=== PATIENT | female | born 1990 | race Two or more races ===

== ENCOUNTER → 2017-10-11 | Outpatient (CLI) | payer OTHER ==
[2017-10-11 19:43] LABS: FREE T4 1.03 NG/DL (0.76-1.46)
[2017-10-11 19:45] LABS: TOTAL 25(OH) VITAMIN D 23.9 NG/ML (30.0-100.0)
== END ==
LOC: M SMT 13:42
DX: F39 Unspecified mood [affective] disorder (principal)
CPT/HCPCS: 84443

== ENCOUNTER → 2018-02-19 | Outpatient (CLI) | payer OTHER, MEDICAID | LOC: M RAD 14:59 | DX: N94.12 Deep dyspareunia (principal); N83.202 Unspecified ovarian cyst, left side; N83.201 Unspecified ovarian cyst, right side | CPT/HCPCS: 76856 ==

== ENCOUNTER → 2018-05-20 | Outpatient (CLI) | payer OTHER ==
--- NOTE | 2018-05-20 17:00 | REP ---
LEFT BREAST ULTRASOUND: Real-time sonographic evaluation of the left breast performed to evaluate a palpable lump at 2-o'clock region. This has reportedly been present since 05/15/2018. Patient has also experienced left breast tenderness for about one month. There is a family history of internal grandmother and paternal aunts with breast cancer. There is dense fibroglandular tissue in the region of 2-o'clock, at the reported palpable abnormality. A cyst or ectatic duct is seen near the nipple, 5 x 2 x 4 mm. There is a hypoechoic nodule near the nipple, 1.1 x 0.6 x 1.2 cm. There is increased through transmission. Echotexture is fairly homogeneous. This probably represents a fibroadenoma. IMPRESSION: In the 2-o'clock region of the left breast in the region of the palpable lump, there is dense fibroglandular tissue and a small cystic structure. In addition, there is a solid nodule with a maximum diameter of 1.2 cm, near the nipple. This has sonographic characteristics most compatible with a fibroadenoma. This is ACR 3 probably benign. Recommend followup ultrasound in 6 months. Alternatively, if definitive diagnosis is desired, if the patient's anxiety warrants, we could easily perform an ultrasound guided biopsy of this nodule. Electronically Signed by Josh Ellsworth MD 05/21/2018 10:37 A
== END ==
LOC: M RAD 15:44
PROVIDERS: ATTEND Advanced Practice Midwife
DX: N63.20 Unspecified lump in the left breast, unspecified quadrant (principal)

== ENCOUNTER → 2018-06-06 | Outpatient (CLI) | payer OTHER ==
--- NOTE | 2018-06-06 21:33 | REP ---
Clinical: Follow up ovarian cyst. Technique: Transabdominal pelvic ultrasound followed by transvaginal examination for better evaluation of the endometrium and adnexa with color Doppler evaluation of the ovaries. Findings: Bladder is normal and measures 10.9 x 7.7 x 4.5 cm. Normal anteverted uterus measures 7.6 x 3.2 x 4.0 cm. Endometrial complex measures 6.1 mm thickness. Small endometrial calcification is identified and likely insignificant. Bilateral ovaries are relatively normal in appearance and vascularity. Right ovary measures 3.7 x 2.7 x 3.2 cm (RI 0.68) and includes 2.6 cm dominant follicle. 1.3 x 1.3 x 1.1 cm right paraovarian cyst unchanged. Left ovary measures 2.4 x 1.1 x 2.0 cm (RI 0.47) and the previously noted complex cyst has resolved. No pelvic fluid or adnexal mass lesion. Impression: 1. Essentially normal appearance to the uterus. 2. Previously noted left ovarian cyst has resolved. Stable right paraovarian cyst. Electronically Signed by Hank Reeves MD 06/06/2018 09:25 P
== END ==
LOC: M RAD 16:39
PROVIDERS: ATTEND Obstetrics & Gynecology
DX: N83.291 Other ovarian cyst, right side (principal)

== ENCOUNTER → 2018-06-17 | Outpatient (REF) | payer OTHER ==
[2018-06-17 21:01] LABS: CHLAMYDIA DNA AMPLIFICATION NEGATIVE (NEGATIVE); GC DNA AMPLIFICATION NEGATIVE (NEGATIVE)
== END ==
LOC: M LAB REF 18:03
PROVIDERS: ATTEND Obstetrics & Gynecology
DX: Z12.4 Encounter for screening for malignant neoplasm of cervix (principal)

== ENCOUNTER → 2018-11-21 | Outpatient (CLI) | payer OTHER ==
--- NOTE | 2018-11-21 19:54 | REP ---
PELVIC AND ENDOVAGINAL PROBE ULTRASOUND: 11/21/2018. Comparison: 06/06/2018, 04/10/2018, 02/19/2018. Clinical history: Pelvic and perineal pain. Previous ovarian cyst and paraovarian cyst. Findings: Transabdominal and endovaginal probes were utilized. Bladder measured 9.9 x 7.7 x 4.9 cm. Uterus is anteverted. It measures 7.3 x 2.5 x 4.7 cm. Central endometrial echogenic stripe has a thickness of 7.3 mm. There is no fluid in the endometrial cavity or endocervical canal. No uterine mass or contour abnormality. No free fluid in the cul-de-sac. Right ovary is 3 x 2.1 x 3.3 cm. It has resistive index 0.55. There is a complex follicle in the right ovary 2.1 x 2 x 1.8 cm. It could be a hemorrhagic follicle or collapsing cyst. It has somewhat irregular fluid contours. There is color flow around it, but not within it. There is again noted to be a paraovarian cyst 1.6 x 1.4 x 1.2 cm on the right side. The left ovary is 2.5 x 2.5 x 1.8 cm. It has a subcentimeter follicle and normal Doppler tracing with resistive index 0.50. Normal color flow, no torsion. No adjacent free fluid or left adnexal mass. Impression: 1. There is a complex or hemorrhagic follicle in the right ovary 2.1 x 2 x 1.8 cm versus collapsing cyst. (Cyst defined at 2.5 cm). 2. Right paraovarian cyst 1.6 x 1.4 cm as before. 3. Left ovary normal. No pelvic free fluid. No torsion on either side. 4. Uterus and endometrial stripe unremarkable. Electronically Signed by Tez Cruz MD 11/21/2018 08:27 P
== END ==
LOC: M RAD 16:39
PROVIDERS: ATTEND Obstetrics & Gynecology
DX: R10.2 Pelvic and perineal pain (principal)

== ENCOUNTER → 2018-11-21 | Outpatient (CLI) | payer OTHER ==
--- NOTE | 2018-11-24 12:32 | REP ---
Focused left breast sonography: History: Breast lump. Six month followup; comparison study is from May 20, 2018. Findings: Scanning is performed over the palpable area at 2 o'clock in the left breast. Heterogeneous fibroglandular background echotexture is seen. At 2 o'clock there is a 1.0 x 1.2 x 0.6 cm hypoechoic nodule located 2.2 cm from the nipple. There is a second 0.7 x 0.7 x 0.4 cm nodule 3.6 cm from the nipple also at 2 o'clock . This smaller nodule is not felt to correspond to the palpable abnormality. Neither of these is a simple cyst. Impression: The previously noted 1.2 cm hypoechoic nodule is again seen unchanged. There is a 0.7 cm hypoechoic nodule visible today which may be complex cyst versus fibroadenoma. BI-RADS category 3 probably benign focused left breast sonography. Repeat left breast sonography in 6 months suggested. Electronically Signed by Paresh Shelby MD 11/24/2018 03:09 P
== END ==
LOC: M RAD 16:35
PROVIDERS: ATTEND Surgery
DX: N63.20 Unspecified lump in the left breast, unspecified quadrant (principal)

== ENCOUNTER → 2018-11-26 | Outpatient (CLI) | payer OTHER ==
[2018-11-26 07:30] LABS: BASO # 0.1 10^3/uL (0.0-0.2); BASO % 1.4 % (0.0-1.0); EOS % 0.9 % (0.0-3.0); HEMATOCRIT 41.9 % (36.0-47.0); HEMOGLOBIN 14.5 g/dl (12.0-15.5); LYMPH # 1.4 10^3/uL (1.5-6.5); MEAN CORPUSCULAR HEMOGLOBIN 33.9 pg (27.0-33.0); MEAN CORPUSCULAR HGB CONC 34.6 g/dl (32.0-36.5); MEAN CORPUSCULAR VOLUME 97.9 fl (80.0-96.0); MONO # 0.6 10^3/uL (0.0-0.8); MONO % 12.7 % (0.0-5.0); NEUTROPHILS # 2.3 10^3/uL (1.8-7.7); NEUTROPHILS % 52.8 % (36.0-66.0); PLATELET COUNT, AUTOMATED 218 10^3/uL (150-450); RED BLOOD COUNT 4.28 10^6/uL (4.00-5.40); WHITE BLOOD COUNT 4.4 10^3/uL (4.0-10.0)
[2018-11-26 08:00] LABS: ALBUMIN 3.8 GM/DL (3.2-5.2); ALT/SGPT 11 U/L (12-78); BILIRUBIN,TOTAL 0.9 MG/DL (0.2-1.0); BLOOD UREA NITROGEN 9 MG/DL (7-18); CALCIUM LEVEL 8.9 MG/DL (8.5-10.1); CARBON DIOXIDE LEVEL 28 MEQ/L (21-32); CHLORIDE LEVEL 108 MEQ/L (98-107); CHOLESTEROL LEVEL 135 MG/DL (<200); CHOLESTEROL RISK RATIO 1.901 (<5); CREATININE FOR GFR 0.78 MG/DL (0.55-1.30); FREE T4 0.97 NG/DL (0.76-1.46); GLOMERULAR FILTRATION RATE > 60.0 (>60); GLUCOSE, FASTING 80 MG/DL (70-100); HDL CHOLESTEROL 71 MG/DL (>40); LDL CHOLESTEROL 55 MG/DL (<100); NON-HDL-C 64 MG/DL; POTASSIUM SERUM 4.1 MEQ/L (3.5-5.1); SODIUM LEVEL 140 MEQ/L (136-145); TOTAL PROTEIN 6.6 GM/DL (6.4-8.2); TRIGLYCERIDES LEVEL 45 MG/DL (<150)
[2018-11-26 08:50] LABS: TOTAL 25(OH) VITAMIN D 29.4 NG/ML (30.0-100.0)
== END ==
LOC: M LAB 07:02
PROVIDERS: ATTEND Physician Assistant
DX: Z13.6 Encounter for screening for cardiovascular disorders (principal); E55.9 Vitamin D deficiency, unspecified; Z86.39 Personal history of other endocrine, nutritional and metabolic disease

== ENCOUNTER → 2019-04-10 | Outpatient (REF) | payer OTHER | LOC: M SFHCCAPE 16:06 | PROVIDERS: ATTEND Physician Assistant | DX: R19.7 Diarrhea, unspecified (principal) ==